=== PATIENT | female | born 1980 | race African-American/Black ===

== ENCOUNTER 2016-10-28 22:37 | Emergency (ER) | payer OTHER ==
[~2016-10-28 22:37] MED LIST: ALDOMET250 MG PO; AMOXICILLIN PO; DYAZIDE 37.5/251 CAP PO; HYCODAN60 ML 5MG/ PO; KEFLEX PO; KETOPROFEN PO; LISINOPRIL10 MG PO; TYLENOL #3 PO; ZOFRAN PO
== END 2016-10-29 00:19 | disposition home or self-care (01) ==
LOC: CED 22:37 → CFTX 22:37
DX: J03.90 Acute tonsillitis, unspecified (principal); K12.2 Cellulitis and abscess of mouth; I10 Essential (primary) hypertension
CPT/HCPCS: 87651; 99283